=== PATIENT | male | born 1960 | race Two or more races ===

== ENCOUNTER 2017-04-09 07:06 | Day surgery (SDC) | payer MEDICAID ==
--- NOTE | 2017-04-08 10:55 | Pre-Procedure Note/Attestation ---
Pre-Procedure Note/Attestation Complete Prior to Procedure Planned Procedure: right Procedure Narrative: phaco with IOL, OD Indications for Procedure Pre-Operative Diagnosis: cataract Attestation I attest that I discussed the nature of the procedure; its benefits; risks and complications; and alternatives (and the risks and benefits of such alternatives ), prior to the procedure, with the patient (or the patient's legal community health program representative). I attest that, if there was a reasonable possibility of needing a blood transfusion, the patient (or the patient's legal community health program representative) was given the [facility] standardized written summary, pursuant to the Malik Kandis Blood Safety Act ([place] Health and Safety Code # 1645, as amended). I attest that I re-evaluated the patient just prior to the surgery and that there has been no change in the patient's H&P, except as documented below: LILLY VERAS Apr 08, 2017 10:55
--- NOTE | 2017-04-08 10:57 | Opthalmology H&P ---
Ophthalmology H&P H&P Chief Complaint: decreased vision in right eye HPI Vision Affects Ability to: read, focus/use eyes together HPI Narrative blurry vision Exam Visual Acuity: OD: hm OS: 20/50 Tension: ODS: 13 OS: 13 Eye Exam: normal OU: anterior chambers, corneas, external exam, levator function, marginal reflex distance, palpebral fissure-width, findings: fundus exam - PDR ou, lens - OD: psc Assessment/Plan Diagnosis: (1) Cataract Treatment Plan: cataract extraction w/ lens implant Goals of Treatment: improvement of vision, enhance quality of life Attestation Attestation The risks and benefits of the surgery as well as alternative procedures were explained to the patient in detail. LILLY VERAS Apr 08, 2017 10:57
[2017-04-09] VITALS (9 sets, daily range): BP systolic 126–144; BP diastolic 75–90
[~2017-04-09] VITALS: Ht 162.6 cm; Wt 74.8 kg
[~2017-04-09 07:06] MED LIST: Akten 3.5% 1ml Btl RIGHT EYE ONE; GLIMEPIRIDE4 MG ORAL; METFORMIN HCL1000 M1 ORAL; Tobramycin Op Soln 0.3% RIGHT EYE ONE
[2017-04-09] MEDS ORDERED: EPINEPHrine 1mg/1ml Amp ONE (07:07)
[2017-04-09] MEDS ORDERED: BSS 500ml btl ONE (07:07)
[2017-04-09] MEDS ORDERED: Dexamethasone 4mg/ml vial ONE (07:07)
[2017-04-09] MEDS ORDERED: Pred Forte 1% Opth Susp 1ml ONE (07:07)
[2017-04-09] MEDS ORDERED: Maxitrol Opth Oint 3.5gm ONE (07:07)
[2017-04-09] MEDS ORDERED: LISINOPRIL10 MG ORAL (07:51)
[2017-04-09] MEDS: Cyclopentolate 1% Opth Sol RIGHT EYE SCH ×3 (08:03→08:29)
[2017-04-09] MEDS: Diclofenac Sod 0.1% Op Soln RIGHT EYE SCH ×3 (08:03→08:29)
[2017-04-09] MEDS: Tropicamide 1% Opth Soln RIGHT EYE SCH ×3 (08:03→08:29)
[2017-04-09] MEDS: Phenylephrine 10% Opth Soln 5ml RIGHT EYE SCH ×3 (08:04→08:29)
[2017-04-09] MEDS ORDERED: Sterile Water Irrig 1000ml IRRIG ONE (08:30)
[2017-04-09] MEDS ORDERED: NS Irrig 1000ml ONE (08:30)
[2017-04-09] MEDS ORDERED: Midazolam 2mg/2ml Inj ONE (08:30)
[2017-04-09] MEDS ORDERED: fentaNYL 100 mcg/2 mL IV ONE (08:30)
[2017-04-09] MEDS ORDERED: LR 1000ml ONE (08:30)
--- NOTE | 2017-04-09 09:06 | Anethesia Preoperative Eval ---
Anesthesia Pre-op PMH/ROS General Date of Evaluation: Apr 09, 2017 Time of Evaluation: 09:05 Anesthesiologist: devyn ASA Score: ASA 2 Mallampati Score Class I : Soft palate, uvula, fauces, pillars visible Class II: Soft palate, uvula, fauces visible Class III: Soft palate, base of uvula visible Class IV: Only hard plate visible Mallampati Classification: Class II Surgeon: velma Diagnosis: cataract Surgical Procedure: cataract extraction Anesthesia History: none Family History: no anesthesia problems Allergies: Coded Allergies: No Known Allergies (Unverified , 10/15/16) Past Medical History Cardiovascular: Reports: HTN Pulmonary: Denies: COPD, JACKY, asthma, other Gastrointestinal/Genitourinary: Denies: CRI, ESRD, GERD, other Neurologic/Psychiatric: Denies: CVA, TIA, dementia, depression/anxiety, other Endocrine: Reports: DM HEENT: Reports: cataract (R) Hematology/Immune: Denies: DVT, anemia, bleeding disorder, other Musculoskeletal/Integumentary: Denies: DDD, DJD, OA, RA, edema, other PSxH Narrative: none Anesthesia Pre-op Phys. Exam Physician Exam Last Vital Signs Date Time Temp Pulse Resp B/P Pulse Ox O2 Delivery O2 Flow Rate FiO2 04/09/17 07:42 98.3 86 20 129/81 95 Room Air Constitutional: NAD Neurologic: CN 2-12 intact Cardiovascular: RRR Respiratory: CTA Gastrointestinal: S/NT/ND Airway Exam Mallampati Classification 2 Mallampati Score: Class II MO: full ROM: full Dentures: upper Anesthesia Pre-op A/P Studies Pre-op Studies: EKG - sr Risk Assessment & Plan Plan: mac Status Change Before Surgery: No Pre-Antibiotics Drug: none BRETT BURDICK HOSPICE AIDE Apr 09, 2017 09:06
--- NOTE | 2017-04-09 09:32 | Immediate Post-Op Evaluation ---
Immediate Post-Op Evalulation Immediate Post-Op Evalulation Procedure: cataract extraction right eye Date of Evaluation: Apr 09, 2017 Time of Evaluation: 09:30 IV Fluids: 200 Blood Pressure Systolic: 144 Blood Pressure Diastolic: 90 Pulse Rate: 86 Respiratory Rate: 14 O2 Sat by Pulse Oximetry: 97 Temperature (Fahrenheit): 98.0 Nausea: No Vomiting: No Complications none Patient Status: reacts, patent Hydration Status: adequate Drug: none BRETT BURDICK CRNA Apr 09, 2017 09:32
[2017-04-09] MEDS ORDERED: Sodium Hyaluronate 14 mg/ml 0.85ml ONE (09:33)
[2017-04-09] MEDS ORDERED: BSS 15ml BTL ONE (09:33)
[2017-04-09] MEDS ORDERED: Povidone-Iodine 5% opth solution ONE (09:33)
--- NOTE | 2017-04-09 09:36 | 48 Hour Post Anesthesia Eval ---
Post Anesthesia Evaluation Procedure: cataract extraction right eye Date of Evaluation: Apr 09, 2017 Time of Evaluation: 09:36 Blood Pressure Systolic: 134 0: 88 Pulse Rate: 85 Respiratory Rate: 14 O2 Sat by Pulse Oximetry: 96 Nausea: No Vomiting: No Hydration Status: adequate Cardiopulmonary Status: stable Mental Status/LOC: patient returned to baseline Post-Anesthesia Complications: none BRETT BURDICK CRNA Apr 09, 2017 09:36
--- NOTE | 2017-04-10 09:06 | Brief Operative Note ---
Immediate Post Operative Note Operative Note Chief Complaint: blurry vision Pre-op Diagnosis: cataract, OD Procedure: phaco with IOL, OD Post-op Diagnosis: pseudophakia Post-op Diagnosis: same as pre-op Findings: consistent w/pre-op dx studies Surgeon: Altagracia Anesthesiologist: Bernie Anesthesia: MAC Specimen: none Complications: none Condition: stable Estimated Blood Loss: none Drains: none Implant(s) used?: Yes LILLY VERAS Apr 10, 2017 09:06
--- NOTE | 2017-04-10 09:55 | Operative Note - PDOC ---
Operative Note Operative Note Date of Operation/Procedure: Apr 09, 2017 Chief Complaint: blurry vision Pre-op Diagnosis: cataract, OD Procedure: phaco with IOL, OD Post-op Diagnosis: pseudophakia Post-op Diagnosis: same as pre-op Operative Findings: consistent w/pre-op dx studies Surgeon: Altagracia Anesthesiologist: Bernie Anesthesia: MAC Specimen: none Complications: none Condition: stable Estimated Blood Loss: none Drains: none Implant(s) used?: Yes Indications for Procedure cataract Description of Procedure This patient has been complaining visually significant cataract in the affected eye with the best corrected visual acuity under moderate glare conditions worse. The patient complains of difficulties with glare in performing activities of daily living and wants to manage personal affairs with comfort and accuracy and see well enough to move with safety at home and outdoors. ~~~ The risks, benefits and alternatives of the procedure were discussed with the patient in the office prior to scheduling surgery. All questions from the patient were answered after the surgical procedure was explained in detail. The risks of the procedure as explained to the patient include, but are not limited to, pain, infection, bleeding, loss of vision, retinal detachment, need for further surgery, loss of lens nucleus, double vision, etc. Alternative procedures were discussed which include, to do nothing or seek a second opinion. Informed consent for this procedure was obtained from the patient. The patient was referred to a primary care physician for a cardiopulmonary clearance prior to surgery, after proper evaluation was done patient was properly scheduled for outpatient surgery. The patient was brought to the operating room where the anesthesiologist established I.V. lines and cardiac monitoring leads. Mild intravenous sedation was administered.~~ The patient was then prepared with a 5% solution of povidone -iodine to the conjunctival fornix and lashes, and a 10% solution of povidone- iodine to the lids and periorbital skin. The patient was then draped in the usual sterile fashion. A lid speculum was then placed in the operative eye. A keratome blade was then used to create a biplanar incision into the anterior chamber. Viscoelastics was then instilled into the anterior chamber. A capsulorrhexis was then fashioned with an utrata forceps followed by hydrodissection and hydro delineation the lens nucleus. Paracentesis incision was made at 3 o'clock with sharp blade. The phacoemulsification unit, after being properly adjusted~ and tested, was then used to emulsify the nucleus followed by aspiration and irrigation of residual cortical material with the I and A unit. Healon was then instilled into the anterior chamber. The corneal wound was then enlarged to the size of the optic with the tristen keratome blade. The intraocular lens was then inspected for right~ power and size~ and thought to be satisfactory. Then the lens was gently placed in the capsular bag. Positioning within the capsular bag was confirmed by direct visualization. Viscoelastics~ was removed from the anterior chamber using the irrigation and aspiration unit. The corneal wound was then tested for leaks and none were found. The lid speculum were then removed. Sponge and needle counts were correct. An eye patch and shield were placed over the operative eye. The patient was taken to the recovery room in stable condition. There were no complications. The patient tolerated the procedure well. The patient was then transferred to the ambulatory surgery unit in stable and satisfactory condition , was given detailed written instructions and asked to follow up~ in the office the next day. ~ ~ Dictated & Transcribed: Justina Kuldeep MCCONNELL JAMES Apr 10, 2017 09:55
== END 2017-04-09 10:55 | disposition home or self-care (01) ==
LOC: SUR 07:06
DX: H26.9 Unspecified cataract (principal); E11.9 Type 2 diabetes mellitus without complications; I10 Essential (primary) hypertension; Z79.84 Long term (current) use of oral hypoglycemic drugs
CPT/HCPCS: 66984; 82962; J0171; J1100; J2250; J3010; J3370; J7120; V2632; Z7512; 94003; 94150